=== PATIENT | female | born 1955 ===

== ENCOUNTER 2017-07-28 18:37 | Observation (INO) | payer SELFPAY ==
[2017-07-28] MEDS ORDERED: Iodixanol 320 MG/ML 100 ML BOTTLE IV ONE ×2 (18:58→19:59)
[2017-07-28] MEDS ORDERED: Sodium Chloride 0.9% 100 ML ONE ×2 (18:58→20:08)
[2017-07-28] MEDS ORDERED: Sodium Chloride 0.9% 1,000 ML IV SCH (19:00)
[2017-07-28 19:06] VITALS: BMI 27.0
[2017-07-28 19:16] LABS: BASO % 0.3 % (0.0-2.0); EOS # 0.1 K/uL (0.0-0.7); EOS % 1.1 % (0.0-4.0); LYMPH # 2.1 K/uL (1.0-4.3); LYMPH % 35.9 % (20.0-40.0); MEAN CELL VOLUME 87.2 fl (81.0-99.0); MEAN CORPUSCULAR HGB CONC 33.3 g/dL (33.0-37.0); MEAN PLATELET VOLUME 10.2 fl (7.2-11.7); MONO # 0.3 K/uL (0.0-0.8); NEUT # 3.3 K/uL (1.8-7.0); NEUT % 56.7 % (50.0-75.0); NRBC % 0.4 % (0.0-0.0); RBC 4.83 Mil/uL (3.80-5.20); RED CELL DISTRIBUTION WIDTH 13.5 % (11.5-14.5); WHITE BLOOD COUNT 5.8 K/uL (4.8-10.8)
[2017-07-28 19:26] LABS: ALB/GLOB RATIO 1.4 (1.0-2.1); ALBUMIN 4.3 g/dL (3.5-5.0); ALT/SGPT 32 U/L (9-52); AST/SGOT 21 U/L (14-36); BLOOD UREA NITROGEN 15 mg/dl (7-17); CALCIUM 9.2 mg/dL (8.4-10.2); GFR AFRICAN-AMERICAN > 60; GFR NON-AFRICAN AMERICAN > 60; HDL CHOLESTEROL 50 MG/DL (30-70)
[2017-07-28 19:37] LABS: LDL CHOLESTEROL 114 mg/dL (0-129)
--- NOTE | 2017-07-28 20:13 | ED PDOC ---
HPI:STROKE - Time Time: 19:10 - Historian Historian: Patient, Spouse - Chief Complaint Chief Complaint: Numbness (facial), Slurred speech - Onset Date: 07/28/17 Time: 14:00 Onset: Hours (5hrs prior to arrival) - Timing Timing: Resolved - Location Location: Speech Locate right:: Face Locate left: Face - Radiation Radiation: Jaw, Forearm (right) - Severity of pain Maximum severity:: Mild - Relieved by Relieved by:: Remaining Still - TPA Positive for Contraindication: Yes - Notes: Notes:: 61 year old female visiting from [facility] with a past medical history of dyslipidemia and hypotension presents to the ED complaining of facial numbness and slurry speech onset 5 hours prior to arrival. Reports she was holding her grandson and felt numbness to her right arm radiating to her jaw and her speech started to slur around 14:00 today. states there was no facial dropping. Around 14:13, the symptoms lasted for five minutes. Also mentioned she had headaches. Patient was free of symptoms afterwards and was able to walk into the ED. Denies headache, chest pain or shortness head. PMD: No family Provider NIHSS Stroke Scale - Date/Time Evaluation Performed Date Performed: 07/28/17 Time Performed: 19:10 When Was NIHSS Performed: Code Stroke - How Severe is the Stroke Level of Consciousness: 0=Alert LOC to Questions: 0=Both comments correct Best Gaze: 0=Normal Visual: 0=No visual loss Facial: 0=Normal Motor Arm - Left: 0=No drift Motor Arm - Right: 0=No drift Motor Leg - Left: 0=No drift Motor Leg - Right: 0=No drift Limb Ataxia: 0=Absent Best Language: 0=No aphasia Dysarthia: 0=Normal articulation Extinction & Inattention (Neglect): 0=Normal, no object rTPA Inclusion/Exclusion - Refusal of Treatment Patient Refused Treatment: No - Inclusion Criteria for Altepase Patient is 18 years or Older: Yes The Clinical Diagnosis of Ischemic Stroke That is Causing a Potentially Disabling Neurological Deficit: Yes Time of Onset is Well Established to be Less Than 270 Minute Before Treatment Would Begin: Yes Risk/Benefit Discussed With Patient/Family Member Present: Yes - Warning to TPA With Conditions Condition: Stroke Serevity Too Mild, Rapid Improvement Past Medical History Reviewed: Historical Data, Nursing Documentation, Vital Signs Vital Signs: Last Vital Signs Temp 97.8 F 07/28/17 18:47 Pulse 50 L 07/28/17 19:02 Resp 17 07/28/17 19:02 BP 166/96 H 07/28/17 19:02 Pulse Ox 96 07/28/17 19:02 - Medical History PMH: Hypercholesterolemia - Surgical History Surgical History: Cholecystectomy - Family History Family History: States: Unknown Family Hx - Social History Current smoker - smoking cessation education provided: No Alcohol: None Drugs: Denies - Home Medications Home Medications: Ambulatory Orders Medication Instructions Recorded Citalopram [celEXA] 20 mg PO QAM 07/28/17 Simvastatin [Zocor] 20 mg PO DAILY 07/28/17 - Allergies Allergies/Adverse Reactions: Allergies Allergy/AdvReac Type Severity Reaction Status Date / Time No Known Allergies Allergy Verified 07/28/17 18:47 Review of Systems ROS Statement: Except As Marked, All Systems Reviewed And Found Negative Cardiovascular: Negative for: Chest Pain Respiratory: Negative for: Shortness of Breath Neurological: Positive for: Numbness, Change in Speech, Dizziness. Negative for : Headache Physical Exam - Reviewed Nursing Documentation Reviewed: Yes Vital Signs Reviewed: Yes - Physical Exam Appears: Positive for: Well, Non-toxic, No Acute Distress Head Exam: Positive for: ATRAUMATIC, NORMAL INSPECTION, NORMOCEPHALIC Skin: Positive for: Normal Color, Warm, Dry Eye Exam: Positive for: EOMI, Normal appearance, PERRL ENT: Positive for: Normal ENT Inspection Neck: Positive for: Normal, Painless ROM, Supple. Negative for: Decreased ROM Cardiovascular/Chest: Positive for: Regular Rate, Rhythm. Negative for: Murmur Respiratory: Positive for: Normal Breath Sounds. Negative for: Decreased Breath Sounds, Accessory Muscle Use, Respiratory Distress Gastrointestinal/Abdominal: Positive for: Normal Exam, Bowel Sounds, Soft. Negative for: Tenderness, Guarding, Rebound Back: Positive for: Normal Inspection. Negative for: L CVA Tenderness, R CVA Tenderness Extremity: Positive for: Normal ROM. Negative for: Tenderness, Pedal Edema, Deformity Neurologic/Psych: Positive for: Alert, Oriented (x3), Gait (steady) - Laboratory Results Result Diagrams: 07/28/17 19:00 07/28/17 19:00 - ECG O2 Sat by Pulse Oximetry: 96 (RA) Pulse Ox Interpretation: Normal Medical Decision Making Medical Decision Making: Time: 18:55 Initial Impression: 61 y/o female with stroke Initial Plan: --BBK --Angiography Head [CT] --Head W/O (code stroke) [CT] --EKG --CMP --Hemoglobin A1C --Lipid --Troponin I --Neurology Consult --Stoke Team Consult --CBC w/ differential --PTT --Prothrombin Time [COAG] --Chest X-ray --Aspirin 324mg --Normal Saline 1,000 mls/hr --Film Library Clerk --Reevaluation Time: 19:[address] Thompson who suggested Aspirin and admission order for patient. Time: 21:[address] Chan, hospitalist who will accept patient for admission. Time: :23 EXAM: CT Angiography Head With Intravenous Contrast FINDINGS: Right internal carotid artery: Mild, less than 50% stenosis of the distal right carotid siphon. No aneurysm. Right anterior cerebral artery: Unremarkable. No occlusion or significant stenosis. No aneurysm. Right middle cerebral artery: Unremarkable. No occlusion or significant stenosis. No aneurysm. Right posterior cerebral artery: Unremarkable. No occlusion or significant stenosis. No aneurysm. Right vertebral artery: Unremarkable as visualized. Left internal carotid artery: No acute findings. Intracranial segment is patent with no significant stenosis. No aneurysm. Left anterior cerebral artery: Unremarkable. No occlusion or significant stenosis. No aneurysm. Left middle cerebral artery: Unremarkable. No occlusion or significant stenosis. No aneurysm. Left posterior cerebral artery: Unremarkable. No occlusion or significant stenosis. No aneurysm. Left vertebral artery: Unremarkable as visualized. Basilar artery: Unremarkable. No occlusion or significant stenosis. No aneurysm. IMPRESSION: Mild, less than 50% stenosis of the distal right carotid siphon. The [place] is patent. Scribe Attestation: Documented by Magnolia Houser, acting as a scribe for Fran Doe MD Provider Scribe Attestation: All medical record entries made by the Scribe were at my direction and personally dictated by me. I have reviewed the chart and agree that the record accurately reflects my personal performance of the history, physical exam, medical decision making, and the department course for this patient. I have also personally directed, reviewed, and agree with the discharge instructions and disposition. Disposition - Clinical Impression Clinical Impression: TIA (transient ischemic attack) - Patient ED Disposition Is Patient to be Admitted: Yes Discussed With DrJonathon: Jame Thompson (Dr Chan) - Disposition Disposition Time: 19:30 Condition: STABLE - Pt Status Changed To: Hospital Disposition Of: Observation Critical Care Time - Critical Care Note Total Time (in mins): 30 Documented critical care: time excludes all time spent performing seperately billable procedures.
[2017-07-28 20:42] LABS: PARTIAL THROMBOPLASTIN TIME 29.8 Seconds (25.6-37.1); PROTHROMBIN TIME 11.2 Seconds (9.8-13.1)
--- NOTE | 2017-07-28 22:09 | CP.PCM.HP ---
History of Present Illness - History of Present Illness History of Present Illness: CC: weakness, slurred speech HPI: This is a 61 y/o female with HTN and HLD who comes in with multiple episodes of R sided arm numbness and slurred speech; she is visiting from [facility]. Per report from family, Patient was at home at around 2 PM and developed some numbness in R arm. It resolved in a few minutes, and was not associated with any other symptoms. Then at 230, she had same type of numbness and as well as some slurred speech. That resolved in a few minutes again. At 4 PM when her son came home, he decided to bring her to ER. In ER, her NIH score was 0. She denied any weakness/numbness, denied visual problems or speech problems. She denies any similar symptoms before. Denies CP/SOB. Patient has persistent bradycardia in 50s, but this is chronic for her apparently. ROS: 14 systems reviewed, negative other than HPI MHx: HTN, HLD SHx: ?GB surgery Allergies: NKDA Medications: Per med rec Family Hx: Father with cardiac disease of some kind Social Hx: Lives in [facility], visiting; no tobacco or significant EtOH use; Surrogate: Son, info in chart Present on Admission - Present on Admission Any Indicators Present on Admission: No Past Patient History - Past Social History Alcohol: None Drugs: Denies - CARDIAC Hx Hypercholesterolemia: Yes - MUSCULOSKELETAL/RHEUMATOLOGICAL Hx Back Pain: Yes - PSYCHIATRIC Hx Substance Use: No - SURGICAL HISTORY Hx Cholecystectomy: Yes - ANESTHESIA Hx Anesthesia: Yes Meds Allergies/Adverse Reactions: Allergies Allergy/AdvReac Type Severity Reaction Status Date / Time No Known Allergies Allergy Verified 07/28/17 18:47 Physical Exam - Constitutional Appears: No Acute Distress - Head Exam Head Exam: ATRAUMATIC, NORMOCEPHALIC - Eye Exam Eye Exam: EOMI, PERRL - Neck Exam Neck exam: Positive for: Full Rom - Respiratory Exam Respiratory Exam: Clear to Auscultation Bilateral, NORMAL BREATHING PATTERN - Cardiovascular Exam Cardiovascular Exam: REGULAR RHYTHM, +S1, +S2 - GI/Abdominal Exam GI & Abdominal Exam: Normal Bowel Sounds, Soft - Extremities Exam Extremities exam: Positive for: full ROM, normal inspection - Neurological Exam Neurological exam: Alert, CN II-XII Intact, Oriented x3 - Psychiatric Exam Psychiatric exam: Normal Affect, Normal Mood - Skin Skin Exam: Dry, Warm Results - Vital Signs Recent Vital Signs: Last Vital Signs Temp 98.3 F 07/28/17 22:06 Pulse 41 L 07/28/17 22:06 Resp 18 07/28/17 22:06 BP 143/74 07/28/17 22:06 Pulse Ox 96 07/28/17 21:31 - Labs Result Diagrams: 07/28/17 19:00 07/28/17 19:00 Labs: Laboratory Results - last 24 hr 07/28/17 07/28/17 07/28/17 18:52 19:00 19:00 WBC 5.8 RBC 4.83 Hgb 14.0 Hct 42.1 MCV 87.2 MCH 29.0 MCHC 33.3 RDW 13.5 Plt Count 220 MPV 10.2 Neut % (Auto) 56.7 Lymph % (Auto) 35.9 Mcminn % (Auto) 6.0 Eos % (Auto) 1.1 Baso % (Auto) 0.3 Neut # (Auto) 3.3 Lymph # (Auto) 2.1 Mcminn # (Auto) 0.3 Eos # (Auto) 0.1 Baso # (Auto) 0.0 PT INR APTT Sodium 144 Potassium 4.0 Chloride 106 Carbon Dioxide 27 Anion Gap 15 BUN 15 Creatinine 0.7 Est GFR ( Amer) > 60 Est GFR (Non-Af Amer) > 60 POC Glucose (mg/dL) 88 Random Glucose 89 Hemoglobin A1c Calcium 9.2 Total Bilirubin 0.3 AST 21 ALT 32 Alkaline Phosphatase 57 Troponin I < 0.0120 Total Protein 7.4 Albumin 4.3 Globulin 3.0 Albumin/Globulin Ratio 1.4 Triglycerides 160 H Cholesterol 202 H LDL Cholesterol Direct 114 HDL Cholesterol 50 Blood Type Antibody Screen BBK History Checked 07/28/17 07/28/17 07/28/17 19:00 19:00 19:10 WBC RBC Hgb Hct MCV MCH MCHC RDW Plt Count MPV Neut % (Auto) Lymph % (Auto) Mcminn % (Auto) Eos % (Auto) Baso % (Auto) Neut # (Auto) Lymph # (Auto) Mcminn # (Auto) Eos # (Auto) Baso # (Auto) PT 11.2 INR 1.0 APTT 29.8 Sodium Potassium Chloride Carbon Dioxide Anion Gap BUN Creatinine Est GFR ( Amer) Est GFR (Non-Af Amer) POC Glucose (mg/dL) Random Glucose Hemoglobin A1c 6.1 Calcium Total Bilirubin AST ALT Alkaline Phosphatase Troponin I Total Protein Albumin Globulin Albumin/Globulin Ratio Triglycerides Cholesterol LDL Cholesterol Direct HDL Cholesterol Blood Type A POSITIVE Antibody Screen Negative BBK History Checked No verified bt - EKG Data EKG Interpreted by: Myself Rate: Bradycardia - EKG Data EKG comments: Bradycardia - Imaging and Cardiology CT scan - head Status: Image reviewed by me, Report reviewed by me (CT/Angio shows 50% R distal carotid stenosis) Assessment & Plan (1) TIA (transient ischemic attack) Assessment and Plan: 61 y/o female with HTN, HLD presenting with TIA symptoms. -admit tele obs -serial trops, A1C in AM -Echo in AM -MRI in AM per Neuro -Neuro consult (notified) -ASA 81 daily, Lipitor 40 daily -Consider closer BP mgmt -SQ Lovenox for DVT PPx Status: Acute (2) HTN (hypertension) Status: Acute (3) HLD (hyperlipidemia) Status: Acute (4) DVT prophylaxis Status: Acute
[2017-07-29 05:51] LABS: HEMOGLOBIN 13.6 g/dL (12.0-16.0); MEAN CELL VOLUME 87.8 fl (81.0-99.0); MEAN CORPUSCULAR HEMOGLOBIN 28.8 pg (27.0-31.0); MEAN CORPUSCULAR HGB CONC 32.8 g/dL (33.0-37.0); RBC 4.71 Mil/uL (3.80-5.20); RED CELL DISTRIBUTION WIDTH 13.4 % (11.5-14.5); WHITE BLOOD COUNT 4.4 K/uL (4.8-10.8)
[2017-07-29 06:09] LABS: BLOOD UREA NITROGEN 11 mg/dl (7-17); CALCIUM 8.9 mg/dL (8.4-10.2); GFR AFRICAN-AMERICAN > 60; GFR NON-AFRICAN AMERICAN > 60
--- NOTE | 2017-07-29 08:05 | RAD ---
HISTORY: Code Stroke COMPARISON: No prior. FINDINGS: LUNGS: No acute infiltrate is identified bilaterally. Right hemidiaphragm appears elevated. Etiology unclear. PLEURA: No significant pleural effusion identified, no pneumothorax apparent. CARDIOVASCULAR: Cardiac size appears upper limits of normal with no pulmonary vascular derangement identified. OSSEOUS STRUCTURES: No significant abnormalities. VISUALIZED UPPER ABDOMEN: Surgical clips identified right upper quadrant. OTHER FINDINGS: None. IMPRESSION: No acute infiltrate bilaterally. Elevated right hemidiaphragm. Borderline cardiomegaly. No pulmonary vascular derangement.
[2017-07-29] MEDS ORDERED: Enoxaparin 40 mg Syringe SC SCH (09:00)
--- NOTE | 2017-07-29 09:52 | CARD ---
APPROVED REPORT EKG Measurement Heart [id number] <Conclusion> Sinus bradycardia Minimal voltage criteria for LVH, may be normal variant Nonspecific ST and T wave abnormality Abnormal ECG
--- NOTE | 2017-07-29 09:56 | CT ---
PROCEDURE: CT HEAD WITHOUT CONTRAST. HISTORY: code stroke COMPARISON: None available. TECHNIQUE: Axial computed tomography images were obtained through the head/brain without intravenous contrast. Radiation dose: Total exam DLP = 850.68 mGy-cm. This CT exam was performed using one or more of the following dose reduction techniques: Automated exposure control, adjustment of the mA and/or kV according to patient size, and/or use of iterative reconstruction technique. FINDINGS: HEMORRHAGE: No intracranial hemorrhage. BRAIN: Good corticomedullary differentiation is seen. Borderline expansion of the ventriculosulcal and cisternal spaces is appreciated with occasional minimal periventricular and subcortical white matter lucency compatible with diffuse cerebral atrophy and chronic microangiopathy. No suspicious extra-axial fluid collection is identified and the midline brain anatomy appears grossly nonfocal as imaged. There is no mass effect throughout. VENTRICLES: Unremarkable. No hydrocephalus. CALVARIUM: Unremarkable. PARANASAL SINUSES: Unremarkable as visualized. No significant inflammatory changes. MASTOID AIR CELLS: Unremarkable as visualized. No inflammatory changes. OTHER FINDINGS: None. IMPRESSION: Minimal age related neuro degenerative changes are identified without acute CT findings as discussed above grossly. Follow-up CT or MRI can be performed as clinically warranted. Findings were reported by [facility] radiologist Edd Perera MD 07/28/2017 7:12 p.m. Concordant preliminary report from [facility].
--- NOTE | 2017-07-29 10:07 | CT ---
PROCEDURE: CT Angiography of the Brain. HISTORY: CODE stroke COMPARISON: None available. TECHNIQUE: CT angiography of the intracranial arteries was performed. Coronal and sagittal maximum intensity projection reformated images were generated. Contrast Dose: Visipaque 320, 80 cc Radiation dose:Total exam DLP = 1295.07 mGy-cm. This CT exam was performed using one or more of the following dose reduction techniques: Automated exposure control, adjustment of the mA and/or kV according to patient size, and/or use of iterative reconstruction technique. FINDINGS: INTERNAL CEREBRAL ARTERIES: The skull base, petrous, and supraclinoid segments are bilaterally widely patent. However, the atherosclerotic changes are identified at the cavernous ICA segments bilaterally with a mild stenosis identified at the right side and marginal stenosis at the left. ANTERIOR CEREBRAL ARTERIES: Unremarkable. A1 and A2 segments are widely patent. Smaller distal branches unremarkable, as visualized. MIDDLE CEREBRAL ARTERIES: Unremarkable. M1 and M2 segments are widely patent. Perisylvian branches grossly symmetric. POSTERIOR CIRCULATION: Basilar Artery: Unremarkable. Distal Vertebral Arteries: Trace distal right vertebral atherosclerosis without significant stenosis resulting. None is appreciated at the left. Both appear widely patent. Posterior Cerebral Arteries: Unremarkable. Posterior Inferior Cerebellar Arteries: Unremarkable. ANEURYSM/ VASCULAR MALFORMATIONS: None. OTHER FINDINGS: None. IMPRESSION: Bilateral cavernous ICA atherosclerosis results in a mild right and marginal left ICA stenosis. CT angiogram of the brain is otherwise unremarkable. Concordant preliminary report from [facility], by Giovanny Jung MD 07/28/2017 8:59 p.m..
--- NOTE | 2017-07-29 11:50 | CARD ---
APPROVED REPORT EXAM: Three-dimensional, Two-dimensional and M-mode echocardiogram with Doppler and color Doppler. Other Information Quality : GoodRhythm : NSR INDICATION CVA/TIA Echo Enhancing Agent Indication: Rule Out Septal Defect Agent/Amount Used: Agitated Saline 2D DIMENSIONS IVSd0.98 (0.7-1.1cm)LVDd4.92 (3.9-5.9cm) LVOT Diameter2.12 (1.8-2.4cm)PWd0.69 (0.7-1.1cm) IVSs1.23 (0.8-1.2cm)LVDs3.61 (2.5-4.0cm) FS (%) 26.5 %PWs1.15 (0.8-1.2cm) M-Mode DIMENSIONS Left Atrium (MM)3.15 (2.5-4.0cm)IVSd0.94 (0.7-1.1cm) Aortic Root3.50 (2.2-3.7cm)LVDd5.82 (4.0-5.6cm) Aortic Cusp Exc.2.12 (1.5-2.0cm)PWd0.91 (0.7-1.1cm) IVSs1.68 cmFS (%) 42 % LVDs3.35 (2.0-3.8cm)PWs1.26 cm Mitral Valve MV E Yqpvmiux25.1cm/sMV DECEL [id number] A Mjkvauxy42.9cm/s MV [id number]/A ratio0.7MVA (PHT)2.18cm2 TDI Lateral E' Peak V13.44cm/sMedial E' Peak V6.27cm/sE/Lateral E'2.9 E/Medial E'6.2 Pulmonary Valve PV Peak Lwkffwml06.7cm/s Tricuspid Valve TR Peak [id number]/sRAP [id number] Peak Gr.19mmHg [id number] LEFT VENTRICLE The left ventricle is normal in size. There is normal left ventricular wall thickness. The left ventricular function is normal. The left ventricular ejection fraction is - 55%. There is normal LV segmental wall motion. Transmitral Doppler flow pattern is Grade I-abnormal relaxation pattern. No left ventricle thrombus noted on this study. There is no ventricular septal defect visualized. There is no left ventricular aneurysm. There is no mass noted in the left ventricle. RIGHT VENTRICLE The right ventricle is normal size. There is normal right ventricular wall thickness. The right ventricular systolic function is normal. ATRIA The left atrium size is normal. There is no thrombus suspected in the left atrium. The right atrium size is normal. The interatrial septum is intact with no evidence for an atrial septal defect. Color doppler and agitated saline bubble studies did not show any atrial septal defect. AORTIC VALVE The aortic valve is normal in structure. No aortic regurgitation is present. There is no aortic valvular stenosis. MITRAL VALVE The mitral valve is normal in structure. There is no evidence of mitral valve prolapse. There is no mitral valve stenosis. Mitral regurgitation is mild. TRICUSPID VALVE The tricuspid valve is normal in structure. There is mild tricuspid regurgitation. Right ventricular systolic pressure is estimated at 30 mmHg. There is no tricuspid valve prolapse or vegetation. There is no tricuspid valve stenosis. PULMONIC VALVE The pulmonary valve is normal in structure. There is at least mild pulmonic valvular regurgitation. GREAT VESSELS The aortic root is normal in size. The IVC is normal in size and collapses >50% with inspiration. PERICARDIAL EFFUSION The pericardium appears normal. There is no pleural effusion. <Conclusion> The left ventricle is normal in size and wall thickness. The left ventricular function is normal. The left ventricular ejection fraction is - 55%. The left atrium, right ventricle and right atrium are normal in size. The mitral, aortic and tricuspid valves are normal. There is mild mitral regurgitation and mild tricuspid regurgitation. Color doppler and agitated saline bubble studies did not show any atrial septal defect.
--- NOTE | 2017-07-29 15:34 | CP.PCM.CON ---
History of Present Illness - History of Present Illness History of Present Illness: 61 yr old woman, visiting her son from [facility], with pmh of hyperlipidemia who had a prolonged spell of right arm and leg numbness and aphasia, for about 5 minutes. This resolved, with no recurrence of symptoms. The patient is well appearing and states that she has never had an episode before, and was not a TPA candidate because her symptoms resolved completely. Today, she is well with no headache, no nausea, no vomiting, no weakness. PMH/PSH: htn, hyperlipidemia FH/SH: , used to be a schoolteacher, has 2 children. no tobacco, occasional etoh. All: nkda. on exam: Normal neurological examination. no numbness or weakness. Past Patient History - Past Medical History & Family History Past Medical History?: Yes - Past Social History Alcohol: None Drugs: Denies - CARDIAC Hx Hypercholesterolemia: Yes - PULMONARY Hx Respiratory Disorders: No - NEUROLOGICAL Hx Neurological Disorder: No - HEENT Hx HEENT Problems: No - RENAL Hx Chronic Kidney Disease: No - ENDOCRINE/METABOLIC Hx Endocrine Disorders: No - HEMATOLOGICAL/ONCOLOGICAL Hx Blood Disorders: No Hx AIDS: No Hx Human Immunodeficiency Virus (HIV): No - INTEGUMENTARY Hx Dermatological Problems: No - MUSCULOSKELETAL/RHEUMATOLOGICAL Hx Back Pain: Yes Hx Falls: No - GASTROINTESTINAL Hx Gastrointestinal Disorders: Yes Hx Gall Bladder Disease: Yes - GENITOURINARY/GYNECOLOGICAL Hx Genitourinary Disorders: No - PSYCHIATRIC Hx Depression: Yes Hx Substance Use: No - SURGICAL HISTORY Hx Cholecystectomy: Yes - ANESTHESIA Hx Anesthesia: Yes Hx Anesthesia Reactions: No Hx Malignant Hyperthermia: No Has any member of the family had a problem w/ anesthesia?: No Meds Allergies/Adverse Reactions: Allergies Allergy/AdvReac Type Severity Reaction Status Date / Time No Known Allergies Allergy Verified 07/28/17 18:47 - Medications Medications: Current Medications Aspirin (Ecotrin) 81 mg PO DAILY [facility] Last Admin: 07/29/17 08:33 Dose: 81 mg Atorvastatin Calcium (Lipitor) 40 mg PO DAILY [facility] Last Admin: 07/29/17 08:34 Dose: 40 mg Citalopram Hydrobromide (Celexa) 20 mg PO QAM [facility] Last Admin: 07/29/17 08:33 Dose: 20 mg Enoxaparin Sodium (Lovenox) 40 mg SC DAILY [facility] PRN Reason: Protocol Last Admin: 07/29/17 08:34 Dose: 40 mg Sodium Chloride (Sodium Chloride 0.9%) 1,000 mls @ 100 mls/hr IV .Q10H [facility] Last Admin: 07/28/17 19:56 Dose: 100 mls/hr Results - Vital Signs Recent Vital Signs: Last Vital Signs Temp 98 F 07/29/17 13:00 Pulse 61 07/29/17 13:00 Resp 18 07/29/17 13:00 BP 152/82 H 07/29/17 13:00 Pulse Ox 96 07/29/17 13:00 - Labs Result Diagrams: 07/29/17 04:20 07/29/17 04:20 Labs: Laboratory Results - last 24 hr 07/28/17 07/28/17 07/28/17 18:52 19:00 19:00 WBC 5.8 RBC 4.83 Hgb 14.0 Hct 42.1 MCV 87.2 MCH 29.0 MCHC 33.3 RDW 13.5 Plt Count 220 MPV 10.2 Neut % (Auto) 56.7 Lymph % (Auto) 35.9 [place] % (Auto) 6.0 Eos % (Auto) 1.1 Baso % (Auto) 0.3 Neut # (Auto) 3.3 Lymph # (Auto) 2.1 [place] # (Auto) 0.3 Eos # (Auto) 0.1 Baso # (Auto) 0.0 PT INR APTT Sodium 144 Potassium 4.0 Chloride 106 Carbon Dioxide 27 Anion Gap 15 BUN 15 Creatinine 0.7 Est GFR ( Amer) > 60 Est GFR (Non-Af Amer) > 60 POC Glucose (mg/dL) 88 Random Glucose 89 Hemoglobin A1c Calcium 9.2 Total Bilirubin 0.3 AST 21 ALT 32 Alkaline Phosphatase 57 Troponin I < 0.0120 Total Protein 7.4 Albumin 4.3 Globulin 3.0 Albumin/Globulin Ratio 1.4 Triglycerides 160 H Cholesterol 202 H LDL Cholesterol Direct 114 HDL Cholesterol 50 Blood Type Antibody Screen BBK History Checked 07/28/17 07/28/17 07/28/17 19:00 19:00 19:10 WBC RBC Hgb Hct MCV MCH MCHC RDW Plt Count MPV Neut % (Auto) Lymph % (Auto) [place] % (Auto) Eos % (Auto) Baso % (Auto) Neut # (Auto) Lymph # (Auto) [place] # (Auto) Eos # (Auto) Baso # (Auto) PT 11.2 INR 1.0 APTT 29.8 Sodium Potassium Chloride Carbon Dioxide Anion Gap BUN Creatinine Est GFR ( Amer) Est GFR (Non-Af Amer) POC Glucose (mg/dL) Random Glucose Hemoglobin A1c 6.1 Calcium Total Bilirubin AST ALT Alkaline Phosphatase Troponin I Total Protein Albumin Globulin Albumin/Globulin Ratio Triglycerides Cholesterol LDL Cholesterol Direct HDL Cholesterol Blood Type A POSITIVE Antibody Screen Negative BBK History Checked No verified bt 07/29/17 07/29/17 07/29/17 04:20 04:20 11:51 WBC 4.4 L RBC 4.71 Hgb 13.6 Hct 41.3 MCV 87.8 MCH 28.8 MCHC 32.8 L RDW 13.4 Plt Count 198 MPV Neut % (Auto) Lymph % (Auto) [place] % (Auto) Eos % (Auto) Baso % (Auto) Neut # (Auto) Lymph # (Auto) [place] # (Auto) Eos # (Auto) Baso # (Auto) PT INR APTT Sodium 145 Potassium 3.8 Chloride 108 H Carbon Dioxide 29 Anion Gap 12 BUN 11 Creatinine 0.7 Est GFR ( Amer) > 60 Est GFR (Non-Af Amer) > 60 POC Glucose (mg/dL) Random Glucose 96 Hemoglobin A1c Calcium 8.9 Total Bilirubin AST ALT Alkaline Phosphatase Troponin I < 0.0120 < 0.0120 Total Protein Albumin Globulin Albumin/Globulin Ratio Triglycerides Cholesterol LDL Cholesterol Direct HDL Cholesterol Blood Type Antibody Screen BBK History Checked - Imaging and Cardiology CT scan - head Status: Image reviewed by me, Report reviewed by me (ct head: normal, CTA head: minimal intracranial ICA stenosis, mild carotid stenosis. no other abnormalities. ) Assessment & Plan - Assessment and Plan (Free Text) Assessment: 61 yr old woman with what appears to be left m1 tia, resolved, with several stroke risk factors. Her stroke workup shows normal ECHO with normal EF, relatively normal CTA, normal CT head, but increased triglycerides. PLan: 1. continue statin 2. start aspirin 3. May be discharged home Dr. Jay MD, DPN.
[2017-07-29 15:45] VITALS: BP 144/81; PULSE 53; RESP 20; TEMP 98; O2SAT 99
--- NOTE | 2017-07-29 15:57 | CP.PCM.DIS ---
Provider - Provider Date of Admission: 07/28/17 20:11 Attending physician: Ryan Chan MD Consults: Neurology : Dr Thompson Time Spent in preparation of Discharge (in minutes): 40 Diagnosis - Discharge Diagnosis (1) TIA (transient ischemic attack) Status: Acute (2) HLD (hyperlipidemia) Status: Acute (3) HTN (hypertension) Status: Acute (4) DVT prophylaxis Status: Chronic Hospital Course - Lab Results Lab Results: Most Recent Lab Values WBC 4.4 K/uL (4.8-10.8) L 07/29/17 04:20 RBC 4.71 Mil/uL (3.80-5.20) 07/29/17 04:20 Hgb 13.6 g/dL (12.0-16.0) 07/29/17 04:20 Hct 41.3 % (34.0-47.0) 07/29/17 04:20 MCV 87.8 fl (81.0-99.0) 07/29/17 04:20 MCH 28.8 pg (27.0-31.0) 07/29/17 04:20 MCHC 32.8 g/dL (33.0-37.0) L 07/29/17 04:20 RDW 13.4 % (11.5-14.5) 07/29/17 04:20 Plt Count 198 K/uL (130-400) 07/29/17 04:20 MPV 10.2 fl (7.2-11.7) 07/28/17 19:00 Neut % (Auto) 56.7 % (50.0-75.0) 07/28/17 19:00 Lymph % (Auto) 35.9 % (20.0-40.0) 07/28/17 19:00 [place] % (Auto) 6.0 % (0.0-10.0) 07/28/17 19:00 Eos % (Auto) 1.1 % (0.0-4.0) 07/28/17 19:00 Baso % (Auto) 0.3 % (0.0-2.0) 07/28/17 19:00 Neut # (Auto) 3.3 K/uL (1.8-7.0) 07/28/17 19:00 Lymph # (Auto) 2.1 K/uL (1.0-4.3) 07/28/17 19:00 [place] # (Auto) 0.3 K/uL (0.0-0.8) 07/28/17 19:00 Eos # (Auto) 0.1 K/uL (0.0-0.7) 07/28/17 19:00 Baso # (Auto) 0.0 K/uL (0.0-0.2) 07/28/17 19:00 PT 11.2 Seconds (9.8-13.1) 07/28/17 19:00 INR 1.0 (0.9-1.2) 07/28/17 19:00 APTT 29.8 Seconds (25.6-37.1) 07/28/17 19:00 Sodium 145 mmol/l (132-148) 07/29/17 04:20 Potassium 3.8 MMOL/L (3.6-5.0) 07/29/17 04:20 Chloride 108 mmol/L (98-107) H 07/29/17 04:20 Carbon Dioxide 29 mmol/L (22-30) 07/29/17 04:20 Anion Gap 12 (10-20) 07/29/17 04:20 BUN 11 mg/dl (7-17) 07/29/17 04:20 Creatinine 0.7 mg/dl (0.7-1.2) 07/29/17 04:20 Est GFR ( Amer) > 60 07/29/17 04:20 Est GFR (Non-Af Amer) > 60 07/29/17 04:20 POC Glucose (mg/dL) 88 mg/dL (65-110) 07/28/17 18:52 Random Glucose 96 mg/dL (65-105) 07/29/17 04:20 Hemoglobin A1c 6.1 % (4.2-6.5) 07/28/17 19:10 Calcium 8.9 mg/dL (8.4-10.2) 07/29/17 04:20 Total Bilirubin 0.3 mg/dl (0.2-1.3) 07/28/17 19:00 AST 21 U/L (14-36) 07/28/17 19:00 ALT 32 U/L (9-52) 07/28/17 19:00 Alkaline Phosphatase 57 U/L (38-126) 07/28/17 19:00 Troponin I < 0.0120 ng/mL (0.00-0.120) 07/29/17 11:51 Total Protein 7.4 G/DL (6.3-8.2) 07/28/17 19:00 Albumin 4.3 g/dL (3.5-5.0) 07/28/17 19:00 Globulin 3.0 gm/dL (2.2-3.9) 07/28/17 19:00 Albumin/Globulin Ratio 1.4 (1.0-2.1) 07/28/17 19:00 Triglycerides 160 mg/DL (0-149) H 07/28/17 19:00 Cholesterol 202 mg/dL (0-199) H 07/28/17 19:00 LDL Cholesterol Direct 114 mg/dL (0-129) 07/28/17 19:00 HDL Cholesterol 50 MG/DL (30-70) 07/28/17 19:00 Blood Type A POSITIVE 07/28/17 19:00 Antibody Screen Negative 07/28/17 19:00 BBK History Checked No verified bt 07/28/17 19:00 - Hospital Course Hospital Course: 61 y/o lady with hx of Hyperlipidemia, was brought in bec of slurring od speech and right sided numbness which resolved after 5 minutes. In the ED, CT of head was negative for any acute findings. CTA of Head: Bilateral cavernous ICA atherosclerosis results in a mild right and marginal left ICA stenosis. Echo : normal wall motion, EF =55%, normal bubble study. She was started on ASA, Lipitor and observed in Telemetry. She remained asymptomatic. Neurology was consulted- cleared pt for discharge. (1) TIA (transient ischemic attack (2) HTN (hypertension) (3) HLD (hyperlipidemia) (4) DVT prophylaxis Discharge Exam - Head Exam Head Exam: ATRAUMATIC, NORMAL INSPECTION, NORMOCEPHALIC - Eye Exam Eye Exam: EOMI, Normal appearance, PERRL Pupil Exam: NORMAL ACCOMODATION - ENT Exam ENT Exam: Mucous Membranes Moist, Normal External Ear Exam - Neck Exam Neck exam: Full Rom - Respiratory Exam Respiratory Exam: NORMAL BREATHING PATTERN. absent: Respiratory Distress - Cardiovascular Exam Cardiovascular Exam: REGULAR RHYTHM, +S1, +S2 - GI/Abdominal Exam GI & Abdominal Exam: Normal Bowel Sounds, Soft. absent: Tenderness - Extremities Exam Extremities exam: full ROM, normal capillary refill, pedal pulses present - Back Exam Back exam: FULL ROM. absent: CVA tenderness (L), CVA tenderness (R) - Neurological Exam Neurological exam: Alert, CN II-XII Intact, Oriented x3, Reflexes Normal - Psychiatric Exam Psychiatric exam: Normal Affect, Normal Mood - Skin Skin Exam: Dry, Normal Color, Warm Discharge Plan - Discharge Medications Prescriptions: Aspirin 325 mg PO DAILY #100 tab Valsartan [Diovan] 80 mg PO DAILY #30 tab - Follow Up Plan Condition: GOOD Disposition: HOME/ ROUTINE Instructions: Low Cholesterol, Saturated Fat, and Trans Fat Diet , High Blood Pressure (DC), Transient Ischemic Attack (DC), High Cholesterol (DC) Additional Instructions: ff up with PMD cata Low Ermelinda , low fat diet Clinical Quality Measures - CQM - Stroke Antithrombotic Prescribed: Yes Anticoagulation Prescribed for Atrial Flutter, Atrial Fibrillation and History of:: Not Applicable Statin prescribed: Yes
[2017-07-29] MEDS ORDERED: Oxycodone/Acetaminophen 5/325 mg Tab PO PRN (16:36)
== END 2017-07-29 17:30 | disposition home or self-care (01) ==
LOC: H.ER 18:37 → H.ERHOLD 20:11 → H.TEL 22:02
PROVIDERS: ADMIT Internal Medicine; ATTEND Internal Medicine
DX: G45.9 Transient cerebral ischemic attack, unspecified (principal); I10 Essential (primary) hypertension; E78.5 Hyperlipidemia, unspecified; E78.00 Pure hypercholesterolemia, unspecified; E78.1 Pure hyperglyceridemia; I65.22 Occlusion and stenosis of left carotid artery; Z79.82 Long term (current) use of aspirin
CPT/HCPCS: 36415; 70450; 70496; 71045; 80048; 80053; 80061; 82948; 83036; 84484; 85025; 85027; 85610; 85730; 86850; 86900; 93005; 93306; 99285; G0378; J1650; J7040; Q9967

== ENCOUNTER 2017-08-14 19:59 | Emergency (ER) | payer SELFPAY ==
[2017-08-14 19:59] VITALS: BMI 27.0
[2017-08-14 20:08] VITALS: BP 165/81; PULSE 55; RESP 16; TEMP 97.9; O2SAT 94
[2017-08-14] MEDS ORDERED: Sodium Chloride 0.9% 1,000 ML IV STA (20:45)
[2017-08-14 21:32] LABS: BASO % 0.5 % (0.0-2.0); EOS # 0.1 K/uL (0.0-0.7); EOS % 1.5 % (0.0-4.0); HEMOGLOBIN 13.8 g/dL (12.0-16.0); LYMPH # 1.8 K/uL (1.0-4.3); LYMPH % 30.8 % (20.0-40.0); MEAN CELL VOLUME 86.4 fl (81.0-99.0); MEAN CORPUSCULAR HEMOGLOBIN 28.8 pg (27.0-31.0); MEAN CORPUSCULAR HGB CONC 33.3 g/dL (33.0-37.0); MEAN PLATELET VOLUME 10.2 fl (7.2-11.7); MONO # 0.4 K/uL (0.0-0.8); MONO % 7.5 % (0.0-10.0); NEUT # 3.5 K/uL (1.8-7.0); NEUT % 59.7 % (50.0-75.0); NRBC % 0.1 % (0.0-0.0); RBC 4.81 Mil/uL (3.80-5.20); RED CELL DISTRIBUTION WIDTH 13.4 % (11.5-14.5); WHITE BLOOD COUNT 5.9 K/uL (4.8-10.8)
[2017-08-14 21:52] LABS: SQUAMOUS EPITHIAL < 1 /hpf (0-5); URINE BACTERIA RARE (<OCC); URINE BILIRUBIN NEGATIVE (NEGATIVE); URINE BLOOD SMALL (NEGATIVE); URINE CLARITY CLEAR (Clear); URINE COLOR STRAW (YELLOW); URINE GLUCOSE (UA) NEG (Normal); URINE LEUKOCYTE ESTERASE TRACE Leu/uL (Negative); URINE PROTEIN NEGATIVE (NEGATIVE); URINE UROBILINOGEN 0.2-1.0 mg/dL (0.2-1.0)
[2017-08-14 22:04] LABS: ALB/GLOB RATIO 1.3 (1.0-2.1); ALBUMIN 4.3 g/dL (3.5-5.0); ALT/SGPT 37 U/L (9-52); AST/SGOT 29 U/L (14-36); BLOOD UREA NITROGEN 15 mg/dl (7-17); CALCIUM 9.3 mg/dL (8.4-10.2); GFR AFRICAN-AMERICAN > 60; GFR NON-AFRICAN AMERICAN > 60
--- NOTE | 2017-08-14 22:13 | ED PDOC ---
Syncope/Near Syncope/Dizziness Time Seen by Provider: 08/14/17 20:14 Chief Complaint (Nursing): Dizziness/Lightheaded History Per: Patient, Family (Son (Jean Claude) and ) Additional Complaint(s): Pt. states a little earlier than 1930 today she was walking in [employer] when she developed dizziness described as the his warm feeling throughout her entire body, nausea (no vomiting), and a mild occipital headache (5/10 in severity). Reports symptoms lasted for approximately 15 minutes and resolved spontaneously. As per son pt. was in ED 2 weeks ago and stayed overnight and dc' d with dx of TIA. She was advised to take ASA daily, started on losartan, and increased her simvastatin dose from 20mg daily to 40mg daily. Also states she's been been checking her BP at home and systolic has not been over 160 and diastolic has not been over 80. Denies chest pain, palpitations, abdominal pain , vomiting, "spinning" sensation, head injury, fever. Past Medical History Reviewed: Historical Data, Nursing Documentation, Vital Signs Vital Signs: Last Vital Signs Temp 97.9 F 08/14/17 20:04 Pulse 55 L 08/14/17 20:04 Resp 16 08/14/17 20:04 BP 165/81 H 08/14/17 20:04 Pulse Ox 94 L 08/14/17 20:04 - Medical History PMH: Depression, Gall Bladder Disease, HTN, Hypercholesterolemia Denies: HIV, Chronic Kidney Disease - Surgical History Surgical History: Cholecystectomy - Family History Family History: States: No Known Family Hx - Home Medications Home Medications: Ambulatory Orders Medication Instructions Recorded Citalopram [celEXA] 20 mg PO QAM 07/28/17 Aspirin 325 mg PO DAILY #100 tab 07/29/17 Simvastatin [Zocor] 40 mg PO DAILY #0 07/29/17 Valsartan [Diovan] 80 mg PO DAILY #30 tab 07/29/17 Meclizine HCl 1 - 2 tab PO Q6 PRN #12 tablet 08/15/17 Metoclopramide [Reglan] 10 mg PO Q8 PRN #15 tab 08/15/17 - Allergies Allergies/Adverse Reactions: Allergies Allergy/AdvReac Type Severity Reaction Status Date / Time No Known Allergies Allergy Verified 07/28/17 18:47 Review of Systems ROS Statement: Except As Marked, All Systems Reviewed And Found Negative Neurological: Positive for: Headache, Dizziness Physical Exam - Reviewed Nursing Documentation Reviewed: Yes Vital Signs Reviewed: Yes - Physical Exam Appears: Positive for: Well, Non-toxic, No Acute Distress Head Exam: Positive for: ATRAUMATIC, NORMAL INSPECTION, NORMOCEPHALIC Skin: Positive for: Normal Color, Warm. Negative for: Rash Eye Exam: Positive for: Normal appearance, EOMI, PERRL. Negative for: Nystagmus ENT: Positive for: Normal ENT Inspection Neck: Positive for: Normal, Painless ROM Cardiovascular/Chest: Positive for: Bradycardia. Negative for: Murmur, Ectopy, Irregularly Irregular Respiratory: Positive for: Normal Breath Sounds. Negative for: Respiratory Distress Gastrointestinal/Abdominal: Positive for: Normal Exam, Soft. Negative for: Tenderness Back: Positive for: Normal Inspection. Negative for: L CVA Tenderness, R CVA Tenderness Extremity: Positive for: Normal ROM Neurologic/Psych: Positive for: Alert, Oriented, Other (equal manager camp strength b/l) . Negative for: Aphasia, Facial Droop - Laboratory Results Result Diagrams: 08/14/17 21:23 08/14/17 21:23 - ECG ECG: Positive for: Interpreted By Me ECG Rhythm: Positive for: Sinus Bradycardia. Negative for: ST/T Changes O2 Sat by Pulse Oximetry: 94 - Progress ED Course And Treament: Labs, reglan 10mg IVPB, IV NS bolus ordered. Pt. refused CT head w/o contrast. 2199 On re-evaluation, pt. reports feeling better. Reports headache and nausea have resolved. During re-evaluation, pt. developed warm feeling throughout her body again. track mechanic: SR at [address]-T wave changes, BP: 113/70, POX: 95% on RA. Pt. agrees to getting CT now along with family. CT head w/o contrast ordered. 2209 Case d/w Dr. Thompson, neurologist, who knows pt. well from previous admission. States that she believes pt. has a hx of migraine and vertigo. She recommends imitrex and admission if symptoms do not improve. Imitrex 6mg SC, antivert 50mg PO ordered. 0 Reports symptoms have resolved but now c/o epigastric abd pain which was present at the onset of other symptoms but was minimal. Abd US, lipase, pepcid 20mg IV ordered. No abd tenderness. 0039 CT head w/o contrast: 1. No acute intracranial abnormality. 2. Mild cortical volume loss. 3. Sequela of chronic microvascular disease. Abd US: 1. Hepatic steatosis. 2. Status post cholecystectomy. 3. Otherwise negative examination 129 track mechanic: Sinus bradycardia at 54 bpm, POX: 96% on RA, BP: 112/83 Pt. reports complete relief of symptoms. Gait steady unassisted. Repeat neuro exam is nonfocal. Advised to f/u with Dr. Thompson for further evaluation. Disposition - Clinical Impression Clinical Impression: Vertigo, Migraine - Patient ED Disposition Is Patient to be Admitted: No - Disposition Referrals: Jame Thompson MD [Medical Doctor] - [facility] [place] [Outside] Disposition: Routine/Home Disposition Time: 01:28 Condition: IMPROVED Additional Instructions: Follow up with Dr. Thompson, neurologist, for further evaluation. Return to ED immediately if symptoms worsen. Prescriptions: Meclizine HCl 1 - 2 tab PO Q6 PRN #12 tablet PRN Reason: Dizziness Metoclopramide [Reglan] 10 mg PO Q8 PRN #15 tab PRN Reason: nausea or headache Instructions: Vertigo (a Type of Dizziness), Headache, Adult Forms: [facility] (Tunisian) Print Language: TUVALUAN
--- NOTE | 2017-08-15 06:51 | CT ---
PROCEDURE: CT HEAD WITHOUT CONTRAST. HISTORY: dizziness COMPARISON: CT head dated 07/28/2017 TECHNIQUE: Axial computed tomography images were obtained through the head/brain without intravenous contrast. Radiation dose: Total exam DLP = 781 mGy-cm. This CT exam was performed using one or more of the following dose reduction techniques: Automated exposure control, adjustment of the mA and/or kV according to patient size, and/or use of iterative reconstruction technique. FINDINGS: HEMORRHAGE: No intracranial hemorrhage. BRAIN: No mass effect or edema. Scattered focal lucencies in the subcortical and periventricular white matter suggestive for chronic microvascular ischemic change. Mild diffuse cerebral atrophy. VENTRICLES: Mild diffuse enlargement. CALVARIUM: Unremarkable. PARANASAL SINUSES: Unremarkable as visualized. No significant inflammatory changes. MASTOID AIR CELLS: Unremarkable as visualized. No inflammatory changes. OTHER FINDINGS: Atherosclerotic vascular calcifications of the intracranial arteries including the V4 segment of the vertebral and parasellar carotid arteries. IMPRESSION: Mild cortical volume loss. Sequelae of chronic microvascular ischemic change. If symptoms persists, consider further evaluation with MRI. These findings were preliminarily reported at 11:39 p.m. on 08/14/[address] Edd Nix from [facility].
--- NOTE | 2017-08-15 11:05 | US ---
HISTORY: epigastric pain COMPARISON: None. TECHNIQUE: Sonographic evaluation of the abdomen. FINDINGS: LIVER: Measures 15.1 cm. Hepatic steatosis. No focal masses. No intrahepatic bile duct dilatation or perihepatic ascites. echogenicity of the liver parenchyma. No mass. No intrahepatic bile duct dilatation. GALLBLADDER: Status post cholecystectomy. No abnormality is seen in the gallbladder fossa. COMMON BILE DUCT: Measures 6.1 mm. No stones. No dilatation. PANCREAS: Unremarkable as visualized. No mass. No ductal dilatation. RIGHT KIDNEY: Measures 5.1 x 10.6cm. Normal echogenicity. No calculus, mass, or hydronephrosis. LEFT KIDNEY: Measures 4.1 x 10.7cm. Normal echogenicity. No calculus, mass, or hydronephrosis. SPLEEN: Normal in size and contour. No mass. AORTA: No aneurysmal dilatation. IVC: Unremarkable. OTHER FINDINGS: None. IMPRESSION: Status post cholecystectomy, hepatic steatosis, otherwise unremarkable abdominal sonogram. Concordant results (preliminary interpretation) provided by [facility]. Procedure Completed: 23:40 Preliminary ([facility]) Report: Dictated and Authenticated: 00:34 August 15, 2017. Final Interpretation: 11:08. August 15, 2017.
--- NOTE | 2017-08-15 18:12 | CARD ---
APPROVED REPORT EKG Measurement Heart [id number] <Conclusion> Sinus bradycardia with sinus arrhythmia Minimal voltage criteria for LVH, may be normal variant Nonspecific ST abnormality Abnormal ECG
== END 2017-08-15 01:50 | disposition home or self-care (01) ==
LOC: H.ER 19:59
DX: R42 Dizziness and giddiness (principal); G43.909 Migraine, unspecified, not intractable, without status migrainosus; E78.00 Pure hypercholesterolemia, unspecified; Z79.82 Long term (current) use of aspirin; I10 Essential (primary) hypertension
CPT/HCPCS: 70450; 76700; 80053; 81003; 83690; 84484; 85025; 93005; 96372; 96374; 99285; J2765; J3030; J7040